=== PATIENT | male | born 1985 | race Caucasian/White ===

== ENCOUNTER 2016-11-05 07:12 | Emergency (ER) | payer SELFPAY ==
[~2016-11-05] VITALS: Ht 152.4 cm; Wt 62.0 kg
[2016-11-05 07:16] VITALS: Ht 152.4 cm; Wt 62.0 kg
[2016-11-05] MEDS ORDERED: IBUPROFEN 600 MG TAB PO ONE (08:00)
[2016-11-05] MEDS ORDERED: LIDOCAINE 1% (MDV) 20 ML INJ SC ONE (08:00)
[2016-11-05] MEDS ORDERED: DIPHTH/TET/ACEL PERTUSS (ADULT) 0.5 ML VIAL IM* ONE (08:00)
--- NOTE | 2016-11-05 08:07 | RADRPT ---
PROCEDURE: Left XR Hand. CLINICAL INDICATION: Laceration. Search for foreign body. TECHNIQUE: AP, oblique and lateral views of the left hand were obtained. COMPARISON: No. FINDINGS: The soft tissues and bony elements are normal. The joint spaces are normal. No radiopaque foreign b alexis is identified. There is a small contour change on the radial side of the right hand at the site of the laceration. IMPRESSION: 1. No evidence of a fracture or foreign body. RPTAT:AAJJ Physician Juni Date Time Electronically viewed and signed by César Ny Physician on 11/05/2016 08:07 HERBER/
[2016-11-05] MEDS ORDERED: IBUP-1542 PO (08:21)
--- NOTE | 2016-11-05 08:23 | ERD ---
ER Documentation Chief Complaint Date/Time DATE: 11/05/16 TIME: 08:21 Chief Complaint Complains of laceration to the right hand while in shower HPI This 30-year-old male complains of a laceration to his right hand after shower door broke while he was bathing this morning. He denies restricted range of motion or weakness. His tetanus is not up-to-date. ROS All systems reviewed and are negative except as per history of present illness. Medications Home Meds Active Scripts Ibuprofen* (Ibuprofen*) 600 Mg Tablet, 600 MG PO Q6, #14 TAB Prov:RAMILA PETERSEN MD 11/05/16 Allergies Allergies: Coded Allergies: No Known Allergy (Unverified , 11/05/16) PMhx/Soc Hx Alcohol Use: No Hx Substance Use: No Hx Tobacco Use: No Smoking Status: Never smoker Physical Exam Vitals Vital Signs Date Time Temp Pulse Resp B/P Pulse Ox O2 Delivery O2 Flow Rate FiO2 11/05/16 07:16 97.2 76 20 168/104 100 Physical Exam Const: [] Alert, [id number]. Head: Atraumatic Eyes: Normal Conjunctiva ENT: Normal External Ears, Nose and Mouth. Neck: Full range of motion..~ No meningismus. Resp: Clear to auscultation bilaterally Cardio: Regular rate and rhythm, no murmurs Abd: Soft, non tender, non distended. Normal bowel sounds Skin: No petechiae or rashes Back: No midline or flank tenderness Ext: No cyanosis, or edema. There is approximately 2 cm laceration on the dorsum of the right first metacarpal phalangeal joint. There is no restricted range of motion weakness or evidence of ischemia or deficits. Neur: Awake and alert Psych: Normal Mood and Affect Results 24 hrs Current Medications Medications (Trade) Dose Ordered Sig/Lali Route PRN Reason Start Time Stop Time Status Last Admin Dose Admin Lidocaine (Xylocaine 1% (Mdv) 20 ml) 20 ml ONCE ONCE SC 11/05/16 08:00 11/05/16 08:01 DC Ibuprofen (Motrin) 600 mg ONCE ONCE PO 11/05/16 08:00 11/05/16 08:01 DC 11/05/16 07:59 Diphtheria/ Tetanus/Acell Pertussis (Adacel) 0.5 ml ONCE ONCE IM* 11/05/16 08:00 11/05/16 08:01 DC 11/05/16 08:00 Procedures/MDM X-ray right hand 3V interpreted by me: Scaphoid: [Normal] Bones: [No fracture] Joints: [No dislocation] Foreign body: [None]. Impression-normal right hand without visible foreign body. Procedure note-patient was given a tetanus booster. The right hand laceration was irrigated copiously with normal saline. 2 cc of lidocaine was used for local infiltration. 4 5-0 nylon sutures were used to approximate the wound and the patient tolerated procedure well and the wound was dressed. Patient was discharged home with instructions for wound check in 2 days and suture removal in 10 days. Return sooner for fevers, redness, new worsening symptoms. Departure Diagnosis: Primary Impression: Laceration Condition: Stable Patient Instructions: Laceration, Hand Additional Instructions: cheque 2 baires para cheque para infeccion. cheque 10 baires para saca los puntos / grapas. RAMILA PETERSEN MD Nov 05, 2016 08:23
== END 2016-11-05 08:54 | disposition home or self-care (01) ==
LOC: FTE 07:12
DX: S61.421A Laceration with foreign body of right hand, initial encounter (principal); W22.8XXA Striking against or struck by other objects, initial encounter; Y92.9 Unspecified place or not applicable; Z23 Encounter for immunization
CPT/HCPCS: 90471; 90715

== ENCOUNTER 2016-11-07 07:53 | Emergency (ER) | payer SELFPAY ==
[~2016-11-07] VITALS: Ht 152.4 cm; Wt 67.0 kg
[~2016-11-07 07:53] MED LIST: IBUP-1542 PO
[2016-11-07 07:57] VITALS: Ht 152.4 cm; Wt 67.0 kg
--- NOTE | 2016-11-07 08:38 | ERD ---
ER Documentation Chief Complaint Date/Time DATE: 11/07/16 TIME: 08:30 Chief Complaint right hand wound check HPI 30-year-old male returns to the emergency department for a wound check following a laceration to his right thumb which occurred 3 days ago. Patient states a shower glass door shattered lacerating his thumb. Patient was seen and evaluated at this emergency department. X-rays were performed at that time and the wound was thoroughly irrigated. Patient states there is a low likelihood of retained glass in the incision. Patient was repaired with suture and Steri-Strips. Patient states he is overall improved and denies any worsening of symptoms, edema, redness, or discharge. 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 Patient states she will return in 4 days for reassessment and suture removal. He rates his pain currently as a sharp 4 out of 10 worse with movement and improved with pain medicine. ROS All systems reviewed and are negative except as per history of present illness. Medications Home Meds Active Scripts Ibuprofen* (Ibuprofen*) 600 Mg Tablet, 600 MG PO Q6, #14 TAB Prov:RAMILA PETERSEN MD 11/05/16 Allergies Allergies: Coded Allergies: No Known Allergy (Unverified , 11/05/16) PMhx/Soc Medical and Surgical Hx: pt denies Medical Hx, pt denies Surgical Hx Hx Alcohol Use: No Hx Substance Use: No Hx Tobacco Use: No Smoking Status: Never smoker Physical Exam Vitals Vital Signs Date Time Temp Pulse Resp B/P Pulse Ox O2 Delivery O2 Flow Rate FiO2 11/07/16 07:57 98.1 83 18 136/83 99 Physical Exam Const: Well-developed, well-nourished, no acute distress Head: Atraumatic Eyes: Normal Conjunctiva Neck: Full range of motion..~ No meningismus. Resp: Clear to auscultation bilaterally Cardio: Regular rate and rhythm, no murmurs Abd: Soft, non tender, non distended. Normal bowel sounds Skin: No petechiae or rashes Back: No midline or flank tenderness Ext: Right thumb: There is a well-healed 2 cm laceration located on the region of the base of the first metacarpal joint of the right hand. No erythema or edema noted. No discharge. Slight tenderness to palpation of the thumb area. Negative snuffbox tenderness. Patient able to perform flexion- extension abduction and abduction of the thumb MCP joint. Radial, median, ulnar motor function intact along the right hand. 2 point discrimination intact along radial and ulnar aspects of the first and second digit. Full wrist flexion and extension. Distal tip of thumb warm and well perfused. Brisk capillary refill. Radial pulse 2+. Patient has good valet runner strength. Neur: Awake and alert Psych: Normal Mood and Affect Procedures/MDM Patient presents the emergency department for a wound check following a laceration from shattered glass which occurred 3 days ago. Patient overall improving and states his pain is relieved with pain medicine at home. Patient states his pain is exacerbated when moving or bumping the area and is requesting a brace today. 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 Patient able to perform full flexion extension, valet runner strength, and is neurovascularly intact along the affected hand. There is no evidence of erythema, swelling, or discharge. Low suspicion for infection, tendon injury or fracture. Patient states he was thoroughly irrigated and x-rays were performed at his last visit. He denies any risk of retained glass particles. Patient was placed in prefab wrist splint while in the emergency department and given a note for extended work release. I discussed with the patient the possibility of needing to follow-up with a hand specialist as this is his dominant hand and necessary for work duties. Patient may need physical therapy for proper recovery of his hand injury. Patient states understanding of this plan. Patient states he does not need refill on pain medication. Patient to return in 5 days for suture removal and reassessment. Based on patient's history of present illness and physical examination the decision was made to discharge. There is no evidence of life threatening injuries or illnesses at this time. . Patient given return precautions. Departure Diagnosis: Primary Impression: Laceration of hand Encounter type: subsequent encounter Foreign body presence: unspecified Laterality: right Qualified Code: S61.411D - Laceration of right hand, foreign body presence unspecified, subsequent encounter Additional Impression: Encounter for wound re-check WARREN ARMIJO PA-C Nov 07, 2016 08:38
== END 2016-11-07 08:11 | disposition home or self-care (01) ==
LOC: FTE 07:53
DX: S61.411D Laceration without foreign body of right hand, subsequent encounter (principal); W25.XXXD Contact with sharp glass, subsequent encounter
CPT/HCPCS: 99281

== ENCOUNTER 2016-11-16 14:59 | Emergency (ER) | payer SELFPAY ==
[~2016-11-16] VITALS: Wt 62.5 kg
[2016-11-16] MEDS ORDERED: SULF1TAB31 PO (15:40)
--- NOTE | 2016-11-19 08:03 | ERA ---
ER Documentation Chief Complaint Date/Time DATE: 11/19/16 TIME: 07:58 Chief Complaint RIGHT HAND SUTURE REMOVAL HPI This is a 30-year-old male presenting for suture removal of right hand on the dorsal aspect just medial to the extensor pollicis brevis tendon. Complains of mild tenderness. Denies any other complications including discharge, changes in sensation or skin color, or loss of motion. Previous notes have been reviewed and are consistent with the patient's history given. Patient's tetanus status is up-to-date. ROS All systems reviewed and are negative except as per history of present illness. Medications Home Meds Active Scripts Sulfamethoxazole/Trimethoprim* (Bactrim Ds* Tablet) 1 Each Tablet, 1 TAB PO BID for 7 Days, #14 TAB Prov:VICKY TORRES PA-C 11/16/16 Ibuprofen* (Ibuprofen*) 600 Mg Tablet, 600 MG PO Q6, #14 TAB Prov:RAMILA PETERSEN MD 11/05/16 Allergies Allergies: Coded Allergies: No Known Allergy (Unverified , 11/05/16) PMhx/Soc Hx Alcohol Use: No Hx Substance Use: No Hx Tobacco Use: No Physical Exam Vitals Vital Signs Date Time Temp Pulse Resp B/P Pulse Ox O2 Delivery O2 Flow Rate FiO2 11/16/16 15:01 98.1 80 20 122/85 99 Physical Exam Const: Healthy-appearing. Well-nourished. Well-developed. No acute distress. Skin: 4 sutures located just medial to the extensor pollicis longus previous tendon. Mild tenderness and erythema in the area. No streaking, induration, ulcer or discharge noted. Head: Normocephalic, Atraumatic Eyes: Non-injected; No scleral erythema, discharge or foreign body. EOMI and AB bilaterally. Ears: Normal External Ears, EACs clear, TM normal bilaterally without erythema. Nose: Normal nose without discharge, or sinus tenderness. Oral: No oral edema visualized. Mucous membranes moist and pink. Neck: No cervical lymphadenopathy, masses or goiter palpated. Full range of motion. Trachea midline. ~ No meningismus. Pulm: Good air movement in upper and lower respiratory tracts. No dyspnea, stridor, tripoding or drooling. Clear to auscultation bilaterally. Cardio: Regular rate and rhythm; No murmurs, gallops or rubs auscultated. Radial and posterior tibial pulses 2+ bilaterally. No cyanosis. Capillary refill less than 2 seconds. Abd: Soft, non tender, non distended. No guarding, masses. Normal bowel sounds. No McBurney's point tenderness. MS: Normal motor strength, normal tone with gross examination. Back: No midline, flank or CVA tenderness. Ext: No cyanosis, edema or palpable cord. Normal movement of all extremities grossly observed. Neur: Awake, alert and oriented x3. Neurovascularly intact bilaterally. Psych: Normal Mood and Affect. Procedures/MDM This patient is presenting for removal of sutures as described in the history and physical examination. 4 sutures were removed. There were no complications during suture removal. Patient was mildly tender thus antibiotics will be prescribed to prevent possible infection. No anatomical snuffbox tenderness. Patient's tetanus status is up-to-date. Previous notes have been reviewed. I have a very low suspicion at this time for spreading infection, cellulitis, lymphangitis, bacteremia, compartment syndrome, fracture or neurovascular compromise. Departure Diagnosis: Primary Impression: Discharge from suture line Qualified Code: T81.89XA - Discharge from suture line, initial encounter Additional Impression: Encounter for removal of sutures Condition: Stable Patient Instructions: Suture Removal, No Complication Additional Instructions: Follow up with your PCP within the next 1-3 days for a more thorough evaluation and a possible referral to a specialist. Return the the emergency department immediately if symptoms worsen or change. If you have any questions regarding medications, ask your pharmacist or us before you leave. If any adverse reactions occur while taking your medications, discontinue the treatment and return to the emergency department immediately. Take your medications as directed, and complete the entire course of treatment. VICKY TORRES PA-C Nov 19, 2016 08:03
== END 2016-11-16 15:42 | disposition home or self-care (01) ==
LOC: E/R 14:59
DX: T81.89XA Other complications of procedures, not elsewhere classified, initial encounter (principal); Y65.8 Other specified misadventures during surgical and medical care; Z48.02 Encounter for removal of sutures
CPT/HCPCS: 99283